=== PATIENT | female | born 1985 | race Caucasian/White ===

== ENCOUNTER → 2017-08-14 08:09 | Outpatient (CLI) | payer OTHER, SELFPAY ==
--- NOTE | 2017-08-14 | DI.US.S_ITS ---
PROCEDURE: US ABDOMEN COMPLETE INDICATIONS: HEMANGIOMA OF LIVER TECHNIQUE: Real-time scanning was performed of the abdominal and retroperitoneal organs, with image documentation. COMPARISON: [facility], CT, ABDOMEN/PELVIS WITH CONTRAST, 12/16/2016, 12:20. FINDINGS: Liver: Liver is normal in size and homogeneous in echotexture. Mildly hyperechoic, rounded posterior right hepatic lobe mass unchanged in size compared to prior CAT scan measuring 2.8 x 2.3 x 1.8 cm. Gallbladder: No gallstones identified. Normal gallbladder wall. No pericholecystic fluid. Negative sonographic Diez sign. Biliary ducts: Intrahepatic bile ducts are non-dilated. Extrahepatic bile duct caliber measures 5.0 mm. Normal is 6-7 mm or less in diameter, or 10 mm or less post-cholecystectomy. Pancreas: Visualized portions of the pancreas are sonographically normal. Spleen: Spleen is normal in size and homogeneous in echotexture. Kidneys: Kidneys are normal in size and echotexture. Right kidney measures 12.9 cm long; left kidney measures 13.0 cm long. No hydronephrosis or nephrolithiasis. No solid masses. Aorta: Visualized aorta is normal in caliber at less than 3 cm. Iliacs: Proximal common iliac arteries are normal in caliber at less than 2.5 cm. IVC: Intrahepatic inferior vena cava is patent. Miscellaneous: No free abdominal fluid. IMPRESSION: 1. 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 Continued sonographic surveillance for two-year period recommended. Dictated by: Rylan Lemus A Interpreted: Kailey Thurston MD on 08/14/2017 at 10:50 Approved by: Kailey Thurston MD, PhD on 08/14/2017 at 12:03
== END ==
PROVIDERS: Visit Provider Family Medicine
DX: D18.03 Hemangioma of intra-abdominal structures (principal)
CPT/HCPCS: 76700

== ENCOUNTER → 2018-01-31 08:21 | Outpatient (CLI) | payer OTHER, SELFPAY ==
--- NOTE | 2018-01-31 | DI.US.S_ITS ---
PROCEDURE: US ABDOMEN COMPLETE INDICATIONS: HEMANGIOMA OF LIVER TECHNIQUE: Real-time scanning was performed of the abdominal and retroperitoneal organs, with image documentation. COMPARISON: [facility], CT, ABDOMEN/PELVIS WITH CONTRAST, 12/16/2016, 12:20. [facility], US, US ABDOMEN COMPLETE, 08/14/2017, 8:41. FINDINGS: Liver: Liver is normal in size and homogeneous in echotexture. Presumed cavernous hemangioma unchanged measuring 2.2 x 1.9 x 1.9 cm. Gallbladder: Surgically absent. Biliary ducts: Intrahepatic bile ducts are non-dilated. Extrahepatic bile duct not well-seen. Pancreas: Not well-seen. Spleen: Spleen is normal in size and homogeneous in echotexture. Kidneys: Kidneys are normal in size and echotexture. Right kidney measures 12.0 cm long; left kidney measures 12.2 cm long. No hydronephrosis or nephrolithiasis. No solid masses. Aorta: Visualized aorta is normal in caliber at less than 3 cm. Iliacs: Proximal common iliac arteries are normal in caliber at less than 2.5 cm. IVC: Intrahepatic inferior vena cava is patent. Miscellaneous: No free abdominal fluid. IMPRESSION: The presumed right hepatic lobe cavernous hemangioma appears stable. Recommend followup ultrasound in 1 year. Dictated by: Rylan JUDD Interpreted: Kathia Berkowitz MD on 01/31/2018 at 10:45 Approved by: Kathia Berkowitz M.D. on 01/31/2018 at 11:00
== END ==
PROVIDERS: Visit Provider Family Medicine
DX: D18.03 Hemangioma of intra-abdominal structures (principal); Z90.49 Acquired absence of other specified parts of digestive tract
CPT/HCPCS: 76700